=== PATIENT | female | born 1990 | race Caucasian/White ===

== ENCOUNTER 2018-02-04 00:38 | Inpatient (IN) | payer BC ==
[~2018-02-04] VITALS: Ht 175.3 cm; Wt 86.4 kg
[2018-02-04] VITALS (27 sets, daily range): BP systolic 98–154; BP diastolic 62–97; PULSE 58–117; TEMP 98.1–99
[2018-02-04] MEDS ORDERED: PRENATAL VITAMI1 T12 (01:28)
[2018-02-04 01:42] LABS: BASO # 0.1 (0.0-0.2); BASO % 0.4 % (0.0-2.0); EOS # 0.1 (0.0-0.7); EOS % 0.7 % (0-4.0); GRAN # 9.5 (1.4-6.5); GRAN % 69.6 % (42.2-75.2); HEMATOCRIT 44.8 % (37.0-47.0); HEMOGLOBIN 15.5 g/dl (12.5-16.0); LYMPH % 21.7 % (20.0-51.0); MEAN CELL VOLUME 84 fl (80.0-100.0); MEAN CORPUSCULAR HEMOGLOBIN 29 pg (27.0-31.0); MEAN CORPUSCULAR HGB CONC 35 g/dl (33.0-37.0); MEAN PLATELET VOLUME 10.7 fl (7.4-10.4); MONO % 6.9 % (1.7-9.3); PLATELET COUNT 228 K/mm3 (130-400); RED BLOOD COUNT 5.34 M/mm3 (4.10-5.30); REDCELL DISTRIBUTION WIDTH-CV 12.3 % (11.5-14.5)
[2018-02-04 09:53] LABS: MEAN CELL VOLUME 84 fl (80.0-100.0); MEAN CORPUSCULAR HGB CONC 35 g/dl (33.0-37.0); MEAN PLATELET VOLUME 10.7 fl (7.4-10.4); PLATELET COUNT 191 K/mm3 (130-400); RED BLOOD COUNT 4.29 M/mm3 (4.10-5.30); REDCELL DISTRIBUTION WIDTH-CV 12.2 % (11.5-14.5)
[2018-02-04 09:54] LABS: HEMATOCRIT 36.2 % (37.0-47.0); HEMOGLOBIN 12.6 g/dl (12.5-16.0); MEAN CORPUSCULAR HEMOGLOBIN 29 pg (27.0-31.0)
[2018-02-04 10:15] LABS: BAND 16 % (0-10); LYMPHOCYTE 7 % (20.0-51.0); NEUTROPHILS 72 % (42.0-75.2); PLATELET ESTIMATE NORMAL (NORMAL)
[2018-02-04 13:42] LABS: HEMATOCRIT 24.8 % (37.0-47.0); HEMOGLOBIN 8.7 g/dl (12.5-16.0)
[2018-02-05 07:38] LABS: HEMATOCRIT 19.6 % (37.0-47.0)
[2018-02-05 07:39] LABS: HEMOGLOBIN 6.5 g/dl (12.5-16.0)
[2018-02-05 09:30] VITALS: BP 113/68; PULSE 86; TEMP 97.9
[2018-02-05 16:15] VITALS: BP 119/64; PULSE 96; TEMP 97.6
[2018-02-05 21:49] VITALS: BP 125/79; PULSE 96; TEMP 98.2
[2018-02-06 02:30] VITALS: BP 112/64; PULSE 78; TEMP 98.3
[2018-02-06 09:00] VITALS: BP 139/80; PULSE 88; TEMP 98.4
[2018-02-06] MEDS ORDERED: PERCOCET 325 MG1 TA2 PO (15:06)
[2018-02-06] MEDS ORDERED: MOTRIN 800800 MG/TAB PO (15:06)
[2018-02-06 16:00] VITALS: BP 134/81; PULSE 92; TEMP 97.4
== END 2018-02-06 16:30 | disposition home or self-care (01) | DRG 775 ==
LOC: LDRO 00:38 → LDR 01:05 → OB 02-05 09:57
PROVIDERS: Obstetrics & Gynecology
PROC: 10E0XZZ Delivery of Products of Conception, External Approach (ICD-10-PCS; principal; 2018-02-04)
PROC: 0KQM0ZZ Repair Perineum Muscle, Open Approach (ICD-10-PCS; 2018-02-04)
PROC: 0W8NXZZ Division of Female Perineum, External Approach (ICD-10-PCS; 2018-02-04)
PROC: 0UCGXZZ Extirpation of Matter from Vagina, External Approach (ICD-10-PCS; 2018-02-04)
DX: O42.02 Full-term premature rupture of membranes, onset of labor within 24 hours of rupture (principal); O69.81X0 Labor and delivery complicated by cord around neck, without compression, not applicable or unspecified; O71.4 Obstetric high vaginal laceration alone; O90.81 Anemia of the puerperium; D62 Acute posthemorrhagic anemia; Z37.0 Single live birth; Z3A.38 38 weeks gestation of pregnancy
CPT/HCPCS: J0330; J0690; J2210; J2405; J2590; J2704; J2795; J3010; J7120

== ENCOUNTER → 2021-11-16 | Outpatient (CLI) | payer BC ==
[~2021-11-16] MED LIST: MOTRIN 800800 MG/TAB PO; PERCOCET 325 MG1 TA2 PO; PRENATAL VITAMI1 T12
== END ==
LOC: DIA.ED 08:42
DX: O24.419 Gestational diabetes mellitus in pregnancy, unspecified control (principal); Z79.84 Long term (current) use of oral hypoglycemic drugs
CPT/HCPCS: G0108

== ENCOUNTER 2022-01-06 13:05 | Inpatient (IN) | payer BC ==
[~2022-01-06] VITALS: Ht 175.3 cm; Wt 108.5 kg
[2022-01-07] VITALS (47 sets, daily range): BP systolic 98–162; BP diastolic 59–93; PULSE 59–106; TEMP 97.3–98.1
[2022-01-07] MEDS ORDERED: GLUCOPHAGE500 MG/TAB PO (06:47)
[2022-01-07 07:07] LABS: BASO # 0.1 K/mm3 (0.0-0.2); BASO % 0.5 % (0.0-2.0); EOS # 0.2 K/mm3 (0.0-0.7); EOS % 1.5 % (0.0-4.0); GRAN # 6.4 K/mm3 (1.4-6.5); GRAN % 63.9 % (42.2-75.2); HEMATOCRIT 34.6 % (37.0-47.0); HEMOGLOBIN 11.7 g/dl (12.5-16.0); LYMPH # 2.4 K/mm3 (1.2-3.4); LYMPH % 24.1 % (20.0-51.0); MEAN CELL VOLUME 82 fl (80.0-100.0); MEAN CORPUSCULAR HEMOGLOBIN 28 pg (27-31); MEAN CORPUSCULAR HGB CONC 34 g/dl (33.0-37.0); MEAN PLATELET VOLUME 10.5 fl (7.4-10.4); MONO # 0.9 K/mm3 (0.1-0.6); MONO % 9.3 % (1.7-9.3); PLATELET COUNT 214 K/mm3 (130-400); RED BLOOD COUNT 4.21 M/mm3 (4.10-5.30); REDCELL DISTRIBUTION WIDTH-CV 12.9 % (11.5-14.5)
--- NOTE | 2022-01-07 07:40 | NUR ---
0720 DR. MACHUCA AT BEDSIDE TO DISCUSS POC AND BREAK WATER. SVE /-[address] MACHUCA. UNABLE TO BREAK WATER AT THIS TIME. WILL CONTINUE TO MONITOR.
--- NOTE | 2022-01-07 08:03 | NUR ---
0653 PT AMBULATORY TO UNIT WITH SUPPORT PERSON, PAL. PT CHANGED INTO GOWN, COMFORTABLE IN BED. DISCUSSED PLAN OF CARE. PT DENIES CTX, DENIES LEAKING OF FLUID, AND REPORTS POSITIVE MOVEMENT. EFM TRACING CATEGORY 1 AT THIS TIME. WILL CONTINUE TO MONITOR.
--- NOTE | 2022-01-07 08:55 | NUR ---
DR. MACHUCA AT BEDSIDE TO AROM. AROM COMPLETED AT THIS TIME. CLEAR FLUID NOTED OF RUPTURE. EFM TRACING CATEGORY 1 AT THIS TIME.
--- NOTE | 2022-01-07 10:08 | NUR ---
1008 PT UP TO BATHROOM. UNABLE TO TRACE EFM AT THIS TIME. CATEGORY 1 TRACING BEFORE OFF MONITOR. BOLUS FOR EPIDURAL STARTED AT THIS TIME. 1013 PT SITTING ON SIDE OF BED FOR EPIDURAL PLACEMENT. UNABLE TO TRACE EFM DUE TO MATERNAL POSITION AT THIS TIME. VITAL SIGNS STABLE. 1017 SINGLE SHOT PER SERAFIN MCDONALD. PT TOLERATED PROCEDURE WELL. AFTER PLACEMENT, PATIENT RETURNED TO BED, COMFORTABLE SITTING UP. EFM TRACING CATEGORY 1 AT THIS TIME. VITAL SIGNS STABLE. WILL CONTINUE TO MONITOR.
--- NOTE | 2022-01-07 11:55 | NUR ---
DR. MACHUCA AT BEDSIDE. SVE 3-4/-2. PT TOLERATED WELL. STARTING PEANUT BALL MOVEMENT. WILL CONTINUE TO MONITOR.
--- NOTE | 2022-01-07 13:00 | NUR ---
DR. MCAHUCA AT BEDSIDE. SVE 4-5/80/-2. PT TOLERATED WELL. CONTINUING POC. WILL CONTINUE TO MONITOR.
--- NOTE | 2022-01-07 14:15 | NUR ---
DR. MACHUCA AT BEDSIDE. SVE 5-6/-1. PT TOLERATED WELL. PT. PLACED IN LEFT STIRUP AT THIS TIME. EFM TRACING CATEGORY 1 AT THIS TIME. WILL CONTINUE TO MONITOR.
--- NOTE | 2022-01-07 16:40 | NUR ---
1640 DR. MACHUCA AT BEDSIDE. SVE COMPLETE/0. WILL BEGIN COACHING PT THROUGH PUSHING EFFORTS AT THIS TIME. ALL APPROPRIATE STAFF NOTIFIED. ROOM PREPARED FOR DELIVERY.
--- NOTE | 2022-01-07 17:07 | NUR ---
1707 OF VIABLE MALE INFANT AT THIS TIME PER DR. MACHUCA. INFANT PLACED ON MATERNAL ABDOMEN. BABY DRIED AND STIMULATED. STRONG CRY NOTED. CORD CLAMPED X2 AND CUT BY DR. MACHUCA PER FOB REQUEST. 1710 OF INTACT [address]ACENTA PER DR. MACHUCA. PITOCIN BOLUS INFUSING PER PROTOCOL. MATERNAL VITAL SIGNS STABLE. LOCHIA MODERATE WITH CLOTS MANUALLY REMOVED BY DR. MACHUCA, FUNDUS BOGGY BUT FIRMS QUICKLY WITH MASSAGE. VORB FOR IM METHERGINE AT THIS TIME. DR. MACHUCA BEGINS REPAIR OF 2ND DEGREE PERINEAL LACERATION. 1716 IM METHERGINE ADMINISTERED. 1720 FUNDUS FIRM, LOCHIA SCANT, NO CLOTS NOTED WITH MASSAGE. MATERNAL VITAL SIGNS STABLE. WILL CONTINUE WITH PP CARE PER PROTOCOL.
[2022-01-07] MEDS ORDERED: MOTRIN 800800 MG/TAB PO (18:03)
--- NOTE | 2022-01-07 19:45 | NUR ---
Pt able to lift and hold each leg off of bed for 5 seconds. Positioned to sitting on edge of bed. Epidural catheter removed. Tip smooth, blue, and intact. Pt able to ambulate to bathroom with 1 assist. Pt unable to void at this time. Educated on need of 3 measured voids and will attempt to void again by 2200. Pericare explained and provided. Clean gown on. Mesh panties and peripad applied. Pt transferred to room 218 by wheelchair with belongings in stable condition.
[2022-01-08 02:25] VITALS: BP 128/79; PULSE 76; TEMP 97.7
[2022-01-08 08:29] VITALS: BP 126/78; PULSE 87; TEMP 97.6
[2022-01-08 16:00] VITALS: BP 142/73; PULSE 79; TEMP 97.3
--- NOTE | 2022-01-08 19:00 | NUR ---
1899- DISCHARGE INSTRUCTIONS GIVEN AND QUESTIONS ANSWERED. PT SIGNS PAPERWORK. BANDS ON MOM AND BABY CUT. 1909- PT ESCORTED TO EXIT BY STAFF. BABY AND BELONGINGS WITH PT. PT ACCOMPANIED BY SPOUSE.
== END 2022-01-08 19:10 | disposition home or self-care (01) | DRG 807 ==
LOC: OB 13:05 → LDR 01-07 06:18 → OB 01-07 06:18
PROVIDERS: ADMIT Obstetrics & Gynecology
PROC: 10E0XZZ Delivery of Products of Conception, External Approach (ICD-10-PCS; principal; 2022-01-07)
PROC: 10907ZC Drainage of Amniotic Fluid, Therapeutic from Products of Conception, Via Natural or Artificial Opening (ICD-10-PCS; 2022-01-07)
PROC: 0KQM0ZZ Repair Perineum Muscle, Open Approach (ICD-10-PCS; 2022-01-07)
PROC: 3E033VJ Introduction of Other Hormone into Peripheral Vein, Percutaneous Approach (ICD-10-PCS; 2022-01-07)
DX: O24.425 Gestational diabetes mellitus in childbirth, controlled by oral hypoglycemic drugs (principal); Z37.0 Single live birth; O99.214 Obesity complicating childbirth; O99.284 Endocrine, nutritional and metabolic diseases complicating childbirth; E28.2 Polycystic ovarian syndrome; O70.1 Second degree perineal laceration during delivery; O75.89 Other specified complications of labor and delivery; Z3A.38 38 weeks gestation of pregnancy
CPT/HCPCS: J2210; J2590; J2795; J7120